=== PATIENT | female | born 1960 | race Caucasian/White ===

== ENCOUNTER → 2021-02-06 | Day surgery (SDC) | payer OTHER ==
[~2021-02-06] MED LIST: ALL DAY ALLERGY10 M2 PO; CYCLOBENZAPRINE5 MG PO; CYMBALTA60 MG PO; DOCUSATE SODIU100 MG PO; ELAVIL 50 MG TA50 MG PO; GLUCOPHAGE1000 MG PO; GLYBURIDE5 MG PO; LOVASTATIN40 MG PO; PREVACID15 M1 PO; PRINIVIL20 MG PO; ST. JOSEPH ASPI81 M1 PO; STEGLATRO5 MG PO; TRICOR 145 MG145 MG PO; TRULICITY1.5 MG/0.5 SQ; VITAMIN D21250 MCG PO
== END | disposition home or self-care (01) ==
LOC: OR 06:35
DX: D12.5 Benign neoplasm of sigmoid colon (principal); D12.3 Benign neoplasm of transverse colon; D12.8 Benign neoplasm of rectum; K57.30 Diverticulosis of large intestine without perforation or abscess without bleeding; K64.2 Third degree hemorrhoids; K64.1 Second degree hemorrhoids; K64.4 Residual hemorrhoidal skin tags; K59.09 Other constipation; I10 Essential (primary) hypertension; E11.9 Type 2 diabetes mellitus without complications; E78.00 Pure hypercholesterolemia, unspecified; Z88.5 Allergy status to narcotic agent; Z79.84 Long term (current) use of oral hypoglycemic drugs; Z80.0 Family history of malignant neoplasm of digestive organs; E66.9 Obesity, unspecified; Z68.32 Body mass index [BMI] 32.0-32.9, adult; J45.909 Unspecified asthma, uncomplicated; K21.9 Gastro-esophageal reflux disease without esophagitis; M79.7 Fibromyalgia
CPT/HCPCS: 82962; J2001; J2704; J7040

== ENCOUNTER → 2021-11-18 | Day surgery (SDC) | payer OTHER ==
[~2021-11-18] MED LIST changes: +ALTOPREV40 MG PO; +ASPIRIN CHEWABL81 MG PO; +JARDIANCE25 MG PO; +LEVEMIR100 UNIT/1 SQ; +METFORMIN HCL1000 M1 PO; +OMEGA 3 1,0001 EACH PO; +OS-CAL 500+D31 EACH PO; +OYSTER SHELL 51 EACH PO; +PRAVASTATIN SOD20 MG PO; +PROAIR HFA8.5 GM INH; +ROPINIROLE HCL1 MG PO; +SENEXON-S 50-81 EACH PO; +SINGULAIR10 MG PO; +SPIRIVA HANDIH18 MCG INH; +TRULICITY3 MG/0.5 M SQ; +ZESTRIL20 MG PO
== END | disposition home or self-care (01) ==
LOC: OR 06:59
DX: I85.00 Esophageal varices without bleeding (principal); K76.6 Portal hypertension; K31.89 Other diseases of stomach and duodenum; K22.89 Other specified disease of esophagus; E78.00 Pure hypercholesterolemia, unspecified; E11.9 Type 2 diabetes mellitus without complications; I10 Essential (primary) hypertension; K21.9 Gastro-esophageal reflux disease without esophagitis; F17.290 Nicotine dependence, other tobacco product, uncomplicated; Z88.5 Allergy status to narcotic agent; E66.9 Obesity, unspecified; Z68.30 Body mass index [BMI] 30.0-30.9, adult; Z79.82 Long term (current) use of aspirin; Z79.4 Long term (current) use of insulin; Z79.899 Other long term (current) drug therapy; Z20.822 Contact with and (suspected) exposure to COVID-19
CPT/HCPCS: 82962; J2704; J7040

== ENCOUNTER → 2021-12-23 | Outpatient (CLI) | payer OTHER ==
[2021-12-23 09:43] LABS: HEMOGLOBIN 13.5 gm/dl (12.3-15.3); RED BLOOD COUNT 4.47 M/UL (4.00-5.10); WHITE BLOOD COUNT 6.8 K/UL (4.5-11.0)
== END ==
LOC: US 09:14
PROVIDERS: Internal Medicine Gastroenterology
DX: K76.6 Portal hypertension (principal); K76.0 Fatty (change of) liver, not elsewhere classified
CPT/HCPCS: 36415; 76705; 80076; 85027; 85610

== ENCOUNTER → 2022-02-03 | Outpatient (CLI) | payer OTHER ==
[2022-02-04 07:12] LABS: ALPHA-1-ANTITRYPSIN, SERUM 171 mg/dL (101-187)
[2022-02-04 09:18] LABS: HBSAG SCREEN Negative (Negative); HCV AB <0.1 (0.0-0.9); HEP A AB, IGM Negative (Negative); HEP B CORE AB, IGM Negative (Negative)
[2022-02-04 14:12] LABS: MITOCHONDRIAL (M2) ANTIBODY <20.0 Units (0.0-20.0)
== END ==
LOC: LAB 12:20
PROVIDERS: Internal Medicine Gastroenterology
DX: K75.81 Nonalcoholic steatohepatitis (NASH) (principal)
CPT/HCPCS: 36415; 80074; 82103; 82728; 83540; 83550; 86038